=== PATIENT | female | born 1965 ===

== ENCOUNTER 2018-04-29 09:29 | Emergency (ER) | payer OTHER ==
[~2018-04-29] VITALS: Ht 167.6 cm; Wt 88.5 kg
[2018-04-29] MEDS ORDERED: SYNTHROID150 MCG PO (09:35)
== END 2018-04-29 13:22 | disposition home or self-care (01) ==
LOC: ER 09:29
DX: R42 Dizziness and giddiness (principal); D32.0 Benign neoplasm of cerebral meninges
CPT/HCPCS: 70551